=== PATIENT | female | born 1965 | race Caucasian/White ===

== ENCOUNTER 2017-01-25 11:14 | Emergency (ER) | payer SELFPAY ==
[2017-01-25 11:15] VITALS: BP 138/82; PULSE 91; RESP 12; TEMP 98.2; O2SAT 97
[2017-01-25] MEDS ORDERED: CAMRTAB2 PO (11:44)
[2017-01-25] MEDS ORDERED: AMPH1TAB29 PO (11:44)
--- NOTE | 2017-01-25 11:44 | PD ---
HPI Chief Complaint: Psychiatric Symptoms Time Seen by Provider: 11:28 Travel History International Travel<30 days: No Contact w/Intl Traveler<30days: No Traveled to known affect area: No History of Present Illness HPI 51-year-old female presents to the ED for voluntary psychiatric evaluation. The patient endorses suicidal ideation. She states that she feels like harming herself. She denies a specific plan. She states that she drank more alcohol than usual overnight. She states that she was attempting to take Benadryl today when her intervened and brought her to the hospital. She denies previous psychiatric history. She states that she does not feel safe at home. She denies any physical altercation. She denies somatic complaints including fever, chills, nausea, vomiting, cough, shortness of breath. She endorses risk of . She is unable to provide any more meaningful history. She repeatedly burst into tears with any further questioning. PFSH Social History Tobacco Use: No Allergies-Medications (Allergen,Severity, Reaction): Coded Allergies: No Known Allergies (Unverified , 01/25/17) Reported Meds & Prescriptions Reported Meds & Active Scripts Active Reported Camrese Lo (Levonorgestrel-Ethinyl Estradiol) 0.1-0.02-0.01 Mg Tab 1 Tab PO DAILY Adderall (Amphetamine-Dextroamphetamine) 5 Mg Tab 5 Mg PO DAILY Avoid late evening doses. Space doses at least 4 to 6 hours if more than once/day dosing. Review of Systems Except as stated in HPI: all other systems reviewed are Neg Physical Exam Narrative GENERAL: Well-nourished, well-developed white female in no acute distress. PSYCHIATRIC: Intermittently tearful. SKIN: Focused skin assessment warm/dry. HEAD: Normocephalic. EYES: No scleral icterus. No injection or drainage. NECK: Supple, trachea midline. No JVD or lymphadenopathy. CARDIOVASCULAR: Regular rate and rhythm without murmurs, gallops, or rubs. RESPIRATORY: Breath sounds clear and equal bilaterally. No accessory muscle use. GASTROINTESTINAL: Abdomen soft, non-tender, nondistended. MUSCULOSKELETAL: No cyanosis, or edema. Noted to walk with normal gait. BACK: Nontender without obvious deformity. No CVA tenderness. Data Data Last Documented VS Vital Signs Date Time Temp Pulse Resp B/P (MAP) Pulse Ox O2 Delivery O2 Flow Rate FiO2 01/25/17 11:15 98.2 91 12 138/82 (100) 97 Orders Orders Complete Blood Count With Diff (01/25/17 11:28) Comprehensive Metabolic Panel (01/25/17 11:28) Urinalysis - C+S If Indicated (01/25/17 11:28) Psych Screen (01/25/17 11:28) Drug Screen, Random Urine (01/25/17 11:28) Alcohol (Ethanol) (01/25/17 11:28) Salicylates (Aspirin) (01/25/17 11:28) Tylenol (Acetaminophen) (01/25/17 11:28) Ed Urine Pregnancytest Poc (01/25/17 11:41) Labs Laboratory Tests Test 01/25/17 11:35 White Blood Count 13.0 TH/MM3 Red Blood Count 4.57 MIL/MM3 Hemoglobin 14.0 GM/DL Hematocrit 41.6 % Mean Corpuscular Volume 91.0 FL Mean Corpuscular Hemoglobin 30.6 PG Mean Corpuscular Hemoglobin Concent 33.6 % Red Cell Distribution Width 13.6 % Platelet Count 301 TH/MM3 Mean Platelet Volume 8.9 FL Neutrophils (%) (Auto) 81.3 % Lymphocytes (%) (Auto) 13.7 % Monocytes (%) (Auto) 4.4 % Eosinophils (%) (Auto) 0.1 % Basophils (%) (Auto) 0.5 % Neutrophils # (Auto) 10.6 TH/MM3 Lymphocytes # (Auto) 1.8 TH/MM3 Monocytes # (Auto) 0.6 TH/MM3 Eosinophils # (Auto) 0.0 TH/MM3 Basophils # (Auto) 0.1 TH/MM3 CBC Comment DIFF FINAL Differential Comment Urine Color YELLOW Urine Turbidity CLEAR Urine pH 6.0 Urine Specific [place] 1.027 Urine Protein 30 mg/dL Urine Glucose (UA) NEG mg/dL Urine Ketones 150 mg/dL Urine Occult Blood NEG Urine Nitrite NEG Urine Bilirubin NEG Urine Urobilinogen LESS THAN 2.0 MG/DL Urine Leukocyte Esterase NEG Urine RBC 1 /hpf Urine WBC 2 /hpf Urine Squamous Epithelial Cells 1 /hpf Urine Mucus FEW /lpf Microscopic Urinalysis Comment CULT NOT INDICATED Blood Urea Nitrogen 9 MG/DL Creatinine 0.84 MG/DL Random Glucose 89 MG/DL Total Protein 7.5 GM/DL Albumin 4.3 GM/DL Calcium Level 8.8 MG/DL Alkaline Phosphatase 52 U/L Aspartate Amino Transf (AST/SGOT) 17 U/L Alanine Aminotransferase (ALT/SGPT) 27 U/L Total Bilirubin 0.5 MG/DL Sodium Level 136 MEQ/L Potassium Level 3.8 MEQ/L Chloride Level 101 MEQ/L Carbon Dioxide Level 20.5 MEQ/L Anion Gap 15 MEQ/L Estimat Glomerular Filtration Rate 71 ML/MIN Salicylates Level LESS THAN 1.7 MG/DL Urine Opiates Screen NEG Acetaminophen Level LESS THAN 2.0 MCG/ML Urine Barbiturates Screen NEG Urine Amphetamines Screen NEG Urine Benzodiazepines Screen NEG Urine Cocaine Screen NEG Urine Cannabinoids Screen NEG Ethyl Alcohol Level LESS THAN 3 MG/DL MDM Medical Decision Making Medical Screen Exam Complete: Yes Emergency Medical Condition: Yes Differential Diagnosis Adjustment disorder versus anxiety versus bipolar versus depression versus dementia versus electrolyte disorder versus malingering versus mood disorder versus ODD versus psychosis versus PTSD versus schizophrenia versus schizoaffective disorder versus substance-induced mood disorder versus other Narrative Course 51-year-old female presents to the ED for voluntary psychiatric evaluation. Patient endorses suicidal ideation, denies a specific plan. She states she drank more alcohol than usual overnight and was attempting to take Benadryl today and attempt to end her life. She states her intervened before she was able take any medication. States that she does not feel safe at home, denies physical altercation. Denies previous psych history. Denies somatic complaints. Burst into tears with questioning. She does not want her in the room. Vitals reviewed. Physical exam is unremarkable. ED urine test negative. Mild leukocytosis, likely stress reaction. No culture indicated of the UA. Tox screen negative. Alcohol less than 3. Patient's medically cleared for psychiatric evaluation. Diagnosis Primary Impression: Medical clearance for psychiatric admission Meme Cantrell Jan 25, 2017 11:44
[2017-01-25 12:07] LABS: AUTOMATED NEUTROPHIL # 10.6 TH/MM3 (1.8-7.7); BASOPHIL # 0.1 TH/MM3 (0-0.2); BASOPHIL % 0.5 % (0.0-2.0); EOSINOPHIL % 0.1 % (0.0-4.0); HEMATOCRIT 41.6 % (35.0-46.0); HEMO FLAGS DIFF FINAL; LYMPH % 13.7 % (9.0-44.0); LYMPHOCYTE # 1.8 TH/MM3 (1.0-4.8); MEAN CORPUSCULAR HEMOGLOBIN 30.6 PG (27.0-34.0); MEAN CORPUSCULAR HGB CONC 33.6 % (32.0-36.0); MONO % 4.4 % (0.0-8.0); NEUT % 81.3 % (16.0-70.0); PLATELET COUNT 301 TH/MM3 (150-450); RED BLOOD COUNT 4.57 MIL/MM3 (4.00-5.30); RED CELL DISTRIBUTION WIDTH 13.6 % (11.6-17.2)
[2017-01-25 12:11] LABS: BLOOD, URINE NEG (NEG); COMMENT (UR) CULT NOT INDICATED; CULTURE IF INDICATED CULT NOT INDICATED; GLUCOSE,URINE NEG (NEG); KETONE, URINE 150 mg/dL (NEG); MUCUS URINE FEW /lpf (OCC); NITRITE,URINE NEG (NEG); SQUAMOUS EPITHELIAL CELL URINE 1 /hpf (0-5); URINE COLOR YELLOW (YELLW/STRAW)
[2017-01-25 12:33] LABS: ALT (GPT) 27 U/L (10-53); ANION GAP 15 MEQ/L (5-15); AST (GOT) 17 U/L (15-37); BICARBONATE 20.5 MEQ/L (21.0-32.0); BLOOD UREA NITROGEN 9 MG/DL (7-18); CHLORIDE 101 MEQ/L (98-107); GLOMERULAR FILTRATION RATE 71 ML/MIN (>89); POTASSIUM 3.8 MEQ/L (3.5-5.1); SODIUM (NA) 136 MEQ/L (136-145)
[2017-01-25 12:35] LABS: ALKALINE PHOSPHATASE 52 U/L (45-117); TOTAL BILIRUBIN ADULT 0.5 MG/DL (0.2-1.0)
[2017-01-25 12:41] LABS: ACETAMINOPHEN LESS THAN 2.0 MCG/ML (10.0-30.0); ALCOHOL LESS THAN 3 MG/DL (0-5)
[2017-01-25 14:57] VITALS: BP 133/80; PULSE 100; RESP 14; O2SAT 97
[2017-01-25 15:29] VITALS: BP 150/76; PULSE 99; RESP 18; TEMP 99.1; O2SAT 100
--- NOTE | 2017-01-25 19:41 | PD ---
History of Present Illness Chief Complaint: Psychiatric Symptoms Time Seen by Provider: 19:15 Travel History International Travel<30 Days: No Contact w/Intl Traveler<30days: No Known affected area: No Legal Status Legal Status: Laird Act History of Present Illness: History of Present Illness HPI 51-year-old female with reported history of depression as well as attention deficit disorder who presents to the ED for voluntary psychiatric evaluation. She reported to ED provider that she was experiencing suicidal ideation with no specific plan. The patient was placed under a laird act while in ED. Electronic medical record is reviewed. No previous contact with [facility] psychiatry. Current toxicology is negative. Alcohol level is undetectable.Patient was monitored in secure environment. She presented no behavioral concerns and no suicidality. Patient is alert, oriented female who appears his stated age dressed in [facility]. Speech is clear, logical and goal-directed. There is no evidence of any psychosis, no christiano or hypomania. She reports she feels stressed or depressed. She goes on to state that she has been binge drinking for the past 6 months and usually will drink 3-4 days out of the week. She stopped taking her antidepressant because she felt that it was not helping. Her mood is depressed. There is no suicidal, homicidal ideation, intent or plan. She doesn't endorse that she has passive suicidal ideation but states that she would never hurt herself. She tells me that she usually takes Benadryl and night to sleep and her intention this morning was try and sleep not to hurt herself. She acknowledges that her alcohol intake has increased over the last several months and understands the negative effects it has on her mood. She is requesting to be discharge. She would like to begin therapy as well as to begin a 12 step program. Telephone call to her with her authorization. He has no concerns if she is discharged and attributes her suicidality to her use of alcohol. He supports her beginning AA as well. [facility] Past Medical History ADD: Yes Tetanus Vaccination: Unknown Influenza Vaccination: No ?: Not Past Surgical History Other Surgery: Yes (BREAST AUGMENTATION) Psychiatric History Psychiatric History Hx Psychiatric Treatment: [facility] llanesn with Dr.Gary Vale for approx 4-5 yrs . Patient denies any inpatient admissions. Denies any treatment by a therapist. Stated that she used to take Straterra but switched to the Adderal. No history of previous suicidal attempts. History of Inpatient Treatment: No Guns or firearms in home: No Social History 2-1/2 years. Lives with and 18-year-old son. Retired and worked as a institution librarian. Hx Alcohol Use: Yes (SOCIALLY) Hx Tobacco Use: No Hx Substance Use: Yes (Binge Drinking every 3-4 days; States that it is alot.) Substance Use Type: Alcohol, Amphetamines-Stimulants Other Substances Used: Per pt, she is blacking out from ETOH Use; Increased in the past 6 mons. Hx of Substance Use Treatment: No Family Psychiatric History Mother with history of alcohol abuse. Allergies-Medications (Allergen,Severity, Reaction): Coded Allergies: epinephrine (Verified Allergy, Unknown, 01/25/17) Per pt, "it works as a general anesthetic on me." Reported Meds & Prescriptions Reported Meds & Active Scripts Active Reported Camrese Lo (Levonorgestrel-Ethinyl Estradiol) 0.1-0.02-0.01 Mg Tab 1 Tab PO DAILY Adderall (Amphetamine-Dextroamphetamine) 5 Mg Tab 5 Mg PO DAILY Avoid late evening doses. Space doses at least 4 to 6 hours if more than once/day dosing. Review of Systems Except as stated in HPI: all other systems reviewed are Neg Mental Status Examination Appearance: Appropriate Consciousness: Alert Orientation: x4 Motor Activity: Normal gait Speech: Unremarkable Language: Adequate Fund of Knowledge: Adequate Attention and Concentration: Adequate Memory: Unremarkable Mood: Sad Affect: Appropriate Thought Process & Associations: Intact Thought Content: Appropriate Hallucination Type: None Delusion Type: None Suicidal Ideation: No Suicidal Plan: No Suicidal Intention: No Homicidal Ideation: No Homicidal Plan: No Homicidal Intention: No Insight: Poor Judgment: Impulsive MDM Medical Decision Making Medical Record Reviewed: Yes Assessment/Plan 51-year-old female with history of depression, attention deficit disorder, alcohol abuse who presents under a Laird act for suicidal ideation. The patient did not make any attempt at harming herself. At this time the patient is clinically sober and denies any suicidal or homicidal ideation. She is future oriented and is considering joining an AA support group. She also would like to begin therapy. She contracts for safety. Her presents no concerns regarding her safety if she were to be discharge and also supports her joining AA. She does not meet Laird act criteria. Psychoeducation was provided. Lift Laird act. Recommend continued outpatient care with Dr. Raghav Vale. Orders Orders Complete Blood Count With Diff (01/25/17 11:28) Comprehensive Metabolic Panel (01/25/17 11:28) Urinalysis - C+S If Indicated (01/25/17 11:28) Psych Screen (01/25/17 11:28) Drug Screen, Random Urine (01/25/17 11:28) Alcohol (Ethanol) (01/25/17 11:28) Salicylates (Aspirin) (01/25/17 11:28) Tylenol (Acetaminophen) (01/25/17 11:28) Ed Urine Pregnancytest Poc (01/25/17 11:41) Diet Regular Basic (01/25/17 Dinner) Results Vital Signs Date Time Temp Pulse Resp B/P (MAP) Pulse Ox O2 Delivery O2 Flow Rate FiO2 01/25/17 15:29 99.1 99 18 150/76 (100) 100 Room Air 01/25/17 15:18 01/25/17 14:57 100 14 133/80 (97) 97 01/25/17 11:15 98.2 91 12 138/82 (100) 97 Laboratory Tests Test 01/25/17 11:35 White Blood Count 13.0 Red Blood Count 4.57 Hemoglobin 14.0 Hematocrit 41.6 Mean Corpuscular Volume 91.0 Mean Corpuscular Hemoglobin 30.6 Mean Corpuscular Hemoglobin Concent 33.6 Red Cell Distribution Width 13.6 Platelet Count 301 Mean Platelet Volume 8.9 Neutrophils (%) (Auto) 81.3 Lymphocytes (%) (Auto) 13.7 Monocytes (%) (Auto) 4.4 Eosinophils (%) (Auto) 0.1 Basophils (%) (Auto) 0.5 Neutrophils # (Auto) 10.6 Lymphocytes # (Auto) 1.8 Monocytes # (Auto) 0.6 Eosinophils # (Auto) 0.0 Basophils # (Auto) 0.1 CBC Comment DIFF FINAL Differential Comment Urine Color YELLOW Urine Turbidity CLEAR Urine pH 6.0 Urine Specific [place] 1.027 Urine Protein 30 Urine Glucose (UA) NEG Urine Ketones 150 Urine Occult Blood NEG Urine Nitrite NEG Urine Bilirubin NEG Urine Urobilinogen LESS THAN 2.0 Urine Leukocyte Esterase NEG Urine RBC 1 Urine WBC 2 Urine Squamous Epithelial Cells 1 Urine Mucus FEW Microscopic Urinalysis Comment CULT NOT INDICATED Blood Urea Nitrogen 9 Creatinine 0.84 Random Glucose 89 Total Protein 7.5 Albumin 4.3 Calcium Level 8.8 Alkaline Phosphatase 52 Aspartate Amino Transf (AST/SGOT) 17 Alanine Aminotransferase (ALT/SGPT) 27 Total Bilirubin 0.5 Sodium Level 136 Potassium Level 3.8 Chloride Level 101 Carbon Dioxide Level 20.5 Anion Gap 15 Estimat Glomerular Filtration Rate 71 Salicylates Level LESS THAN 1.7 Urine Opiates Screen NEG Acetaminophen Level LESS THAN 2.0 Urine Barbiturates Screen NEG Urine Amphetamines Screen NEG Urine Benzodiazepines Screen NEG Urine Cocaine Screen NEG Urine Cannabinoids Screen NEG Ethyl Alcohol Level LESS THAN 3 Diagnosis Primary Impression: Medical clearance for psychiatric admission Additional Impression: Alcohol-induced mood disorder Psychiatrically Cleared: Yes Med/ Other Pt Specific Info: No Change to Meds Disposition: 01 DISCHARGE HOME Condition: Stable Problem Qualifiers Katie Bernstein [facility] Jan 25, 2017 19:41
--- NOTE | 2017-01-25 20:24 | PD ---
Physical Exam Date Seen by Provider: Jan 25, 2017 Time Seen by Provider: 20:23 Data Data Last Documented VS Vital Signs Date Time Temp Pulse Resp B/P (MAP) Pulse Ox O2 Delivery O2 Flow Rate FiO2 01/25/17 20:10 01/25/17 15:29 99.1 99 18 100 Room Air Orders Orders Complete Blood Count With Diff (01/25/17 11:28) Comprehensive Metabolic Panel (01/25/17 11:28) Urinalysis - C+S If Indicated (01/25/17 11:28) Psych Screen (01/25/17 11:28) Drug Screen, Random Urine (01/25/17 11:28) Alcohol (Ethanol) (01/25/17 11:28) Salicylates (Aspirin) (01/25/17 11:28) Tylenol (Acetaminophen) (01/25/17 11:28) Ed Urine Pregnancytest Poc (01/25/17 11:41) Diet Regular Basic (01/25/17 Dinner) Ed Discharge Order (01/25/17 20:24) Labs Laboratory Tests Test 01/25/17 11:35 White Blood Count 13.0 TH/MM3 Red Blood Count 4.57 MIL/MM3 Hemoglobin 14.0 GM/DL Hematocrit 41.6 % Mean Corpuscular Volume 91.0 FL Mean Corpuscular Hemoglobin 30.6 PG Mean Corpuscular Hemoglobin Concent 33.6 % Red Cell Distribution Width 13.6 % Platelet Count 301 TH/MM3 Mean Platelet Volume 8.9 FL Neutrophils (%) (Auto) 81.3 % Lymphocytes (%) (Auto) 13.7 % Monocytes (%) (Auto) 4.4 % Eosinophils (%) (Auto) 0.1 % Basophils (%) (Auto) 0.5 % Neutrophils # (Auto) 10.6 TH/MM3 Lymphocytes # (Auto) 1.8 TH/MM3 Monocytes # (Auto) 0.6 TH/MM3 Eosinophils # (Auto) 0.0 TH/MM3 Basophils # (Auto) 0.1 TH/MM3 CBC Comment DIFF FINAL Differential Comment Urine Color YELLOW Urine Turbidity CLEAR Urine pH 6.0 Urine Specific [place] 1.027 Urine Protein 30 mg/dL Urine Glucose (UA) NEG mg/dL Urine Ketones 150 mg/dL Urine Occult Blood NEG Urine Nitrite NEG Urine Bilirubin NEG Urine Urobilinogen LESS THAN 2.0 MG/DL Urine Leukocyte Esterase NEG Urine RBC 1 /hpf Urine WBC 2 /hpf Urine Squamous Epithelial Cells 1 /hpf Urine Mucus FEW /lpf Microscopic Urinalysis Comment CULT NOT INDICATED Blood Urea Nitrogen 9 MG/DL Creatinine 0.84 MG/DL Random Glucose 89 MG/DL Total Protein 7.5 GM/DL Albumin 4.3 GM/DL Calcium Level 8.8 MG/DL Alkaline Phosphatase 52 U/L Aspartate Amino Transf (AST/SGOT) 17 U/L Alanine Aminotransferase (ALT/SGPT) 27 U/L Total Bilirubin 0.5 MG/DL Sodium Level 136 MEQ/L Potassium Level 3.8 MEQ/L Chloride Level 101 MEQ/L Carbon Dioxide Level 20.5 MEQ/L Anion Gap 15 MEQ/L Estimat Glomerular Filtration Rate 71 ML/MIN Salicylates Level LESS THAN 1.7 MG/DL Urine Opiates Screen NEG Acetaminophen Level LESS THAN 2.0 MCG/ML Urine Barbiturates Screen NEG Urine Amphetamines Screen NEG Urine Benzodiazepines Screen NEG Urine Cocaine Screen NEG Urine Cannabinoids Screen NEG Ethyl Alcohol Level LESS THAN 3 MG/DL MDM Supervised Visit with SAPPHIRE: No Narrative Course 51-year-old female presented to the ED this morning with suicidal ideations. She was placed under Laird act and medically cleared by myself. She was evaluated by Katie Bernstein, director of digital technology. Laird act was lifted. Patient was diagnosed with alcohol-induced mood disorder. Please see Katie' note for those details. She is instructed to follow-up with the psychiatrist and ACT outpatient, return to the ED for suicidal ideation. The patient is stable and discharged home. Diagnosis Primary Impression: Medical clearance for psychiatric admission Additional Impression: Alcohol-induced mood disorder Referrals: ACT (Out patient) Psychiatrist Patient Instructions: General Instructions, Depression (ED), At-Risk Alcohol Use (ED) Departure Forms: Tests/Procedures Additional Instruction: PLEASE FOLLOW UP WITH PRIMARY PSYCHIATRIST SOON POSSIBLE. MINIMIZE INTAKE OF ALCOHOLIC BEVERAGES. RETURN TO THIS OR ANY NEAREST EMERGENCY DEPARTMENT FOR NEW OR WORSENING SYMPTOMS UP TO AND INCLUDING SUICIDAL OR HOMICIDAL IDEATIONS. Disposition: 01 DISCHARGE HOME Condition: Stable Meme Cantrell Jan 25, 2017 20:24
== END 2017-01-25 21:25 | disposition home or self-care (01) ==
LOC: NEPC 11:14 → NEPJ 21:25
DX: F10.94 Alcohol use, unspecified with alcohol-induced mood disorder (principal); R45.851 Suicidal ideations; Z79.899 Other long term (current) drug therapy
CPT/HCPCS: 80053; 80307; 81001; 84703; 85025; 99284